=== PATIENT | male | born 1935 | race Caucasian/White ===

== ENCOUNTER 2024-06-27 06:35 | Day surgery (SDC) | payer MEDICARE, BC, SELFPAY ==
[2024-06-23 15:31] VITALS: BMI 25.1
--- NOTE | 2024-06-24 07:00 | EKG_ITS ---
[facility] Test Date: 2024-06-24 Pat Name: JOSE A MARINO Department: Room: - Gender: Male Treasurer: DENISE : 1935 Requested By: Capri Beal Order Number: [id number] Reading MD: Capri Beal Measurements Intervals Ada Rate: 65 P: 18 MN: 163 QRS: 74 QRSD: 138 T: 5 QT: 422 QTc: 440 Interpretive Statements SINUS RHYTHM POSSIBLE LEFT ATRIAL ENLARGEMENT [-0.1mV P WAVE IN V1/V2] RIGHT BUNDLE BRANCH BLOCK [120+ ms QRS DURATION, UPRIGHT V1, 40+ ms S IN I/aVL/V4/V5/V6] Compared to ECG 01/03/2022 19:29:38 No significant changes /store/S0/[id number]/[id number].pdf
[2024-06-24 10:08] LABS: Basophils # (Auto) 0.1 Thou/mm3 (0.0-0.2); Basophils % (Auto) 1 % (0-2.5); Eosinophils # (Auto) 0.2 Thou/mm3 (0.0-0.5); Eosinophils % (Auto) 3 % (0-10); Hematocrit 40.5 % (41.0-53.0); Hemoglobin 13.5 g/dL (13.5-16.0); Immature Granulocytes % (Auto) 0 % (0-0); Immature Granulocytes Auto 0.02 Thou/mm3 (0.00-0.00); Lymphocytes # (Auto) 2.4 Thou/mm3 (1.0-4.8); Lymphocytes % (Auto) 28 % (10-50); Mean Corpuscular HGB Conc 33.3 g/dl (31.0-37.0); Mean Corpuscular Hemoglobin 31.6 pg (25.0-35.0); Mean Corpuscular Volume 95 fL (80-100); Monocytes % (Auto) 11 % (0-12); Neutrophils # (Auto) 5.1 Thou/mm3 (1.8-7.7); Neutrophils % (Auto) 58 % (37-80); Nucleated Red Blood Cell % 0 /100 WBC (0); Platelet Count 174 Thou/mm3 (140-440); RDW Standard Deviation 45.1 fL (35.1-43.9); Red Blood Count 4.27 Miln/mm3 (4.50-5.90); White Blood Count 8.8 Thou/mm3 (3.8-10.6)
[2024-06-24 10:17] LABS: Anion Gap 8 (7-16); BUN/Creatinine Ratio 13 Ratio (12-20); Blood Urea Nitrogen 12 mg/dL (9-23); Calcium 10.3 mg/dL (8.3-10.6); Carbon Dioxide 29.8 mMol/L (20.0-31.0); Chloride 104 mMol/L (98-107); Creatinine (Component) 0.9 mg/dL (0.6-1.3); Estimated Creatinine Clearance 44.8 mL/min (>60); Glucose 89 mg/dL (74-106); Osmolality,Calculated 281 (275-295); Potassium 4.2 mMol/L (3.4-5.1); Sodium 142 mMol/L (136-145); eGFR > 60 See Note
[2024-06-24 10:24] LABS: Partial Thromboplastin Time 23.7 Seconds (22.0-36.0); Prothrombin Time 10.6 Seconds (9.0-12.2)
[2024-06-27] VITALS (24 sets, daily range): BP systolic 128–183; BP diastolic 61–111; PULSE 70–91; RESP 13–21; TEMP 36.7–37.2; O2SAT 92–97
[2024-06-27] MEDS: amLODIPine BESYLATE 5 MG TABLET PO (12:25)
[2024-06-27] MEDS: hydrALAZINE INJ 20 MG/ML VIAL 10 MG IV (13:22)
[2024-06-27] MEDS: VALSARTAN 80 MG TABLET 160 MG PO (13:47)
--- NOTE | 2024-06-27 14:05 | ESOP_ITS ---
RE: TURNER MARINO : 1935 DATE OF OPERATION: 06/27/2024 PROCEDURE PERFORMED: 1. Diagnostic right and left heart cardiac catheterization, nonselective coronary angiogram, CPT 64803. 2. Ultrasound guided access of the right radial artery. 3. Aortic arch and aortic root angiogram. 4. Subclavian angiogram. DIAGNOSES: Coronary artery disease, status post bypass graft surgery and abnormal nuclear scan, and shortness of breath. HISTORY AND INDICATIONS: Mr. Turner Marino is an 88-year-old male with a past medical history of CAD, bypass graft surgery, kyphoscoliosis, emphysema, COPD, and hypertension. He has been having recurrent shortness of breath on exertion. Cardiac stress test and nuclear scan was abnormal, hence coronary angiogram was recommended, bypass graft angiogram was recommended for further evaluation. DESCRIPTION OF PROCEDURE: The patient was brought to cardiac catheterization laboratory where he was given 2 mg of Versed and 50 mcg of fentanyl for sedation. Right femoral artery was cannulated by micropuncture technique, 5-[place] sheath was introduced. Right femoral vein was cannulated by micropuncture technique and 7-[place] sheath was introduced. Diagnostic right heart catheterization was performed by Williams-Donna catheter, right heart pressures were measured. Subsequently, a 5-[place] TIG-4 diagnostic catheter was used to cannulate the left main coronary artery, angiogram was performed. Right coronary artery could not be engaged. Subsequently, 5-[place] pigtail catheter was advanced into the aortic arch and aortic root and aortic root angiogram was performed and ascending aorta, aortic arch, descending thoracic aortic imaging was also performed. Subsequently, I attempted to selective angiogram difficult and hence I proceeded with radial approach. Right radial artery was cannulated with micropuncture technique. Ultrasound guidance was used and 6-[place] Glidesheath was introduced. Initially, TIG-4 and FR4 diagnostic catheter into the innominate artery from there. There is extreme tortuosity, heavy calcification, could not negotiate. The wire was able to go into the aortic root, but could not pass the catheter over the wire because of heavy calcification, stiffness, abandoned the procedure at this point. Findings are as follows. Right heart pressure is normal. Right atrial pressure was 2 mmHg. Right ventricle pressure was 24/5 mmHg. Pulmonary artery pressure is 24/10. Mean pressure is 15 mmHg. Pulmonary artery wedge pressure is 5 mmHg. Aortic pressure was 140/80 mmHg. The coronary angiogram nonselectively performed. Left main coronary artery appears to be occluded. The LARSON to LAD is filling during aortic angiogram. Right coronary artery appears to be patent, but with moderate to severe stenosis in the mid segment and detailed exam was not possible because of non-selective angiogram. The patient's aortic angiogram showed evidence of calcification of the aorta, extreme tortuosity because of kyphoscoliosis, S-shaped tortuosity of the descending thoracic aorta. Innominate angiogram showed heavy calcification, though it appears to be patent and with tortuosity. SUMMARY OF FINDINGS: 1. Normal right heart pressures. 2. No evidence of pulmonary hypertension. 3. Widely patent LARSON to LAD. 4. Severe multivessel coronary artery disease. 5. Inadequate study for selective angiogram and bypass graft angiogram. RECOMMENDATIONS: We will recommend continue medical management. If he continues to have symptoms, we will do a CTA, but again the patient is not a good candidate for coronary intervention, is probably not useful at this point practically speaking. We will continue medical management for now considering technical issues with doing angiograms and interventions and he is not a candidate for any repeat surgeries anymore. DT: 13:19:24 TT: 14:03:00 Ref: [id number] - TID: [id number]
--- NOTE | 2024-06-27 14:59 | PC.NURSE ---
patient transferred via wheelchair to private vehicle. patient sites are flat, soft, slightly tender, and no hematoma present. dressing on hand and groin are clean, dry, and intact. discharge instruction given to and patient. both expressed verbal understanding. patient and made aware to pharmacy picking tech prescriptions at [facility] in [place].
== END 2024-06-27 14:30 | disposition home or self-care (01) ==
PROVIDERS: PCP Internal Medicine; Referring Provider Internal Medicine Cardiovascular Disease; Visit Provider Internal Medicine Cardiovascular Disease
PROC: (CPT 93456; principal; 2024-06-27 07:30)
DX: I25.118 Atherosclerotic heart disease of native coronary artery with other forms of angina pectoris (principal); I35.0 Nonrheumatic aortic (valve) stenosis; I42.8 Other cardiomyopathies; I65.21 Occlusion and stenosis of right carotid artery; I10 Essential (primary) hypertension; E78.5 Hyperlipidemia, unspecified; J43.9 Emphysema, unspecified; M81.0 Age-related osteoporosis without current pathological fracture; Z95.1 Presence of aortocoronary bypass graft; Z79.899 Other long term (current) drug therapy; Z79.82 Long term (current) use of aspirin
CPT/HCPCS: 93456; 36415; 80048; 85025; 85610; 85730; 93005; J0171; J0360; J0461; J1643; J2250; J2310; J2371; J3010; J3490; A9270; J2305